=== PATIENT | male | born 1960 | race Caucasian/White ===

== ENCOUNTER 2017-12-05 19:33 | Inpatient (IN) | payer OTHER ==
[2017-12-05] MEDS ORDERED: cefTRIAXone SODIUM 1 GM in 0.9 % SODIUM CHLORIDE 50 ML IV ONE (19:50)
--- NOTE | 2017-12-05 19:54 | ED Physician Documentation ---
General Adult - HISTORIAN Historian: patient, spouse - HPI Stated Complaint: fever, testicular pain Chief Complaint: General Adult Additional Information: Sick 10 days ago with urinary frequency, back pain, fever; no treatment. Ye sterday at noon became sick with malaise, fever to 101, sweats, hallucinations, left testicular swelling. Doesn't know when testicular swelling began - missing much of timeline he says 2/2 fever. Left testicle was not big yesterday. Has been taking tylenol and ibuprofen for fever. Last tylenol at about 1900. Never had these symptoms before. Takes meds for HTN, depression, acid reflux. No other modifying factors or associated signs. - ROS CONST: fever, sweating, recent illness - PAST HX Past History: other (above) Surgeries/Procedures: other (back) Allergies/Adverse Reactions: Allergies Allergy/AdvReac Type Severity Reaction Status Date / Time No Known Allergies Allergy Verified 12/05/17 19:42 Home Medications: Ambulatory Orders Medication Instructions Recorded Escitalopram Oxalate [Lexapro] 10 mg PO D 12/05/17 Losartan Potassium [Cozaar] 50 mg PO D 12/05/17 Omeprazole 10 mg PO D 12/05/17 - SOCIAL HX Smoking History: non-smoker Alcohol Use: none Drug Use: none - FAMILY HX Family History: No - REVIEWED ASSESSMENTS Nursing Assessment Reviewed: Yes Vitals Reviewed: Yes Progress - Progress Progress: Pt clearly has orchitis/epididymitis/UTI. Would like to have US of left testicle. 2042, pt discussed with Dr. Burrows, urology, at [facility], who thinks I should not be4 concerned about US tonight. Recommends admit and IV abx. If pt n ot better in 24 hours, then urology would see him. Discuees pt with Dr. Baez at 2049. 2056, admitted to [facility] ED Results Lab/Radiology - Orders Orders: ED Orders Category Date Time Status Place IV Lock 1T Care 12/05/17 19:43 Ordered BLOOD CULTURE Stat Lab 12/05/17 Ordered CBC/PLATELET/DIFF Routine Lab 12/05/17 Ordered CHLAMYDIA & GONORRHOEAE Stat Lab 12/05/17 Ordered CMP Routine Lab 12/05/17 Ordered URINALYSIS Routine Lab 12/05/17 Ordered NORMAL SALINE @ 1000 MLS/HR ( 1000ml BOLUS) Med 12/05/17 19:50 Ordered 0.9 % Sodium Chloride [Normal Saline] 1,000 ml IV Q1H cefTRIAXone SODIUM [Rocephin] 1 gm Med 12/05/17 19:50 Ordered 0.9 % Sodium Chloride [Sodium Chloride] 50 ml IV NOW General Adult Physical Exam - PHYSICAL EXAM GENERAL APPEARANCE: moderate distress EENT: eye inspection normal, ENT inspection normal, pharynx normal (Mallampati 2), no nystagmus, other (wet oropharynx) NECK: normal inspection, supple. No: lymphadenopathy RESPIRATORY: no resp distress, breath sounds normal CVS: reg rate & rhythm, heart sounds normal, no murmur ABDOMEN: soft, normal bowel sounds, no distension, non-tender, other (Left testicle 3-4x the size of the right with erythema, warmth, ezquisite tenderness. No tense. ) BACK: normal inspection, no CVA tenderness SKIN: diaphoresis, pallor EXTREMITIES: non-tender, normal range of motion, no evidence of injury, no edema NEURO: CN's nml as tested, motor nml, sensation nml, cognition normal Discharge Clincal Impression: Orchitis and epididymitis, unspecified Urinary tract infection Qualifiers: Urinary tract infection type: acute cystitis Hematuria presence: with hematuria Qualified Code(s): N30.01 - Acute cystitis with hematuria Referrals: Primary Doctor,No [Primary Care Provider] - 2 Days Condition: Fair Disposition: ADMITTED INPATIENT Decision to Admit: [id number] Decision Time: 20:57
[2017-12-05] MEDS ORDERED: cefTRIAXone SODIUM 1 GM VIAL ONE (20:00)
[2017-12-05] MEDS ORDERED: 0.9 % SODIUM CHLORIDE 100 ML IV ONE (20:01)
[2017-12-05] MEDS ORDERED: DOXYCYCLINE MONOHYDRATE 100 MG CAPSULE PO ONE (20:15)
[2017-12-05] MEDS: 0.9 % SODIUM CHLORIDE 1,000 ML IV ONE ×2 (20:18→22:31)
[2017-12-05 20:19] LABS: BASOPHILS % 0.2 (0.0-1.5); EOSINOPHILS % 0.3 % (0.0-6.8); MEAN CORPUSCULAR HEMOGLOBIN 31.9 pg (28.0-34.0); MEAN CORPUSCULAR VOLUME 91.4 fl (80.0-100.0); MONOCYTES % 3.4 % (0.0-11.0); NEUTROPHILS # 15.9 # k/uL (1.4-7.7)
[2017-12-05] MEDS ORDERED: HYDROmorphone HCL/PF 2 MG/ML DISP.SYRIN IVP ONE (20:25)
[2017-12-05 20:32] LABS: eGFR (African) > 60; eGFR (Non-African) > 60
[2017-12-05] MEDS ORDERED: ACETAMINOPHEN 500 MG TABLET PO PRN (21:30)
[2017-12-05] MEDS ORDERED: IBUPROFEN 200 MG TABLET PO PRN ×2 (21:30→22:18)
[2017-12-05] MEDS: 0.9 % SODIUM CHLORIDE 1,000 ML IV SCH (23:19)
[2017-12-05 23:50] VITALS: BMI 31.0
[2017-12-06] MEDS ORDERED: traMADol HCL 50 MG TABLET PO PRN (00:12)
[2017-12-06] MEDS ORDERED: ACETAMINOPHEN 500 MG TABLET PO PRN (00:13)
[2017-12-06] MEDS: HYDROmorphone HCL/PF 2 MG/ML DISP.SYRIN IVP PRN ×5 (02:00→23:35)
[2017-12-06] MEDS ORDERED: HYDROmorphone HCL/PF 2 MG/ML DISP.SYRIN ONE (05:59)
[2017-12-06] MEDS: PANTOPRAZOLE SODIUM 40 MG TABLET PO SCH (06:04)
[2017-12-06] MEDS: 0.9 % SODIUM CHLORIDE 1,000 ML IV SCH ×3 (08:15→20:05)
[2017-12-06] MEDS: LOSARTAN POTASSIUM 50 MG TABLET PO SCH (09:17)
[2017-12-06] MEDS: ESCITALOPRAM OXALATE 10 MG TABLET PO SCH (09:17)
[2017-12-06] MEDS: HYDROmorphone HCL/PF 2 MG/ML DISP.SYRIN IVP SCH ×2 (09:46→13:10)
--- NOTE | 2017-12-06 09:54 | History and Physical Report ---
History of Present Illnes - History of Present Illness Reason for Visit: Orchitis History of Present Illness: 57 year old male presented overnight to the ER for left testicular swelling and pain. He notes he had been having some burning with urination and chills for several days prior to coming to the ER. He states he first noticed some testicular discomfort on Wednesday which became significantly worse by Wednesday evening. He notes he has been having fever, chills, blood in his urine, low abdominal pain, and back pain. In the ER his WBC count was 17.7. ER provider reports she spoke with Urology at the [facility] who recommended Doxycycline and Rocephin for treatment. Rocephin IV was given in ER and oral doxycycline was started. Patient reports worsening symptoms this morning, and nursing staff notes fevers through the night. - Past Medical History Cardiac: HTN Pulmonary: denies: Asthma, COPD Gastrointestinal: GERD. denies: Constipation Psych: Anxiety, Depression Musculoskeletal: Chronic low back pain (multiple back surgeries) - Past Surgical History Past Surgical History: Hernia Repair (Umbillical), Other (Fusion of L spine, Skin grafting for velazquez) - Past Social History Smoke: No (quit 10 years ago) Alcohol: Rare Drugs: None Lives: With Family - Health Maintenance Health Maintenance: denies: Influenza Vaccine, Pneumococcal Vaccine Influenza Vaccine: No Pneumonia Vaccine: No Resuscitation Status: Resusciation Status Resuscitation Status Full Code Review of Systems - Review of Systems Constitutional: Fever, Chills Eyes: negative: vision change, redness ENT: negative: Ear Pain, Nose Discharge, Nose Congestion, Throat Pain Respiratory: negative: Cough, Shortness of Breath Cardiovascular: negative: Chest Pain, Light Headedness Gastrointestinal: Abdominal Pain (very low abdomen pain). negative: Nausea, Diarrhea, Constipation Genitourinary: Dysuria, Hematuria, Other (Testicular pain, swelling and erythma of the scrotum) Musculoskeletal: Back Pain (moderate). negative: Foot Pain Skin: negative: Rash Neurological: negative: Weakness, Numbness, Change in Speech, Confusion - Medications/Allergies Allergies/Adverse Reactions: Allergies Allergy/AdvReac Type Severity Reaction Status Date / Time No Known Allergies Allergy Verified 12/05/17 19:42 Home Medications: Home Medications Escitalopram Oxalate [Lexapro] 10 mg PO D 12/05/17 Losartan Potassium [Cozaar] 50 mg PO D 12/05/17 Omeprazole 10 mg PO D 12/05/17 Current Inpatient Medications: Current Inpatient Medications Acetaminophen (Tylenol Extra Strength) 1,000 mg PO Q6H PRN PRN Reason: PAIN OR TEMPERATURE > 101 Escitalopram Oxalate (Lexapro) 10 mg PO D [facility] Last Admin: 12/06/17 09:17 Dose: 10 mg Hydromorphone HCl (Dilaudid) 2 - 4 mg IVP Q2 [facility] Last Admin: 12/06/17 09:46 Dose: 4 mg Sodium Chloride (Normal Saline) 1,000 mls @ 100 mls/hr IV Q10H [facility] Last Admin: 12/05/17 23:19 Dose: 100 mls/hr Ceftriaxone Sodium 1 gm/ (Sodium Chloride) 50 mls @ 100 mls/hr IV NOW ONE Stop: 12/06/17 09:48 LEVOFLOXACIN 500MG/D5W 100ML (500 mg/ PREMIX BAG) 100 mls @ 100 mls/hr IV DAILY [facility] Stop: 12/20/17 09:29 Ibuprofen (Advil) 600 mg PO Q6 PRN PRN Reason: Fever >101 Losartan Potassium (Cozaar) 50 mg PO D [facility] Last Admin: 12/06/17 09:17 Dose: 50 mg Pantoprazole Sodium (Protonix) 40 mg PO 0700 [facility] Last Admin: 12/06/17 06:04 Dose: 40 mg Tramadol HCl (Ultram) 50 mg PO Q6H PRN PRN Reason: PAIN Last Admin: 12/06/17 00:16 Dose: 50 mg Exam - Exam Vital Signs: Vital Signs (72 hours) 12/05/17 12/05/17 12/05/17 19:35 21:42 22:08 Temperature 99.1 F 99.2 F Pulse Rate [ 123 H 76 95 H Pulse ox] Respiratory 22 16 16 Rate Blood Pressure 118/80 117/67 101/59 [Left Arm] O2 Sat by Pulse 95 93 98 Oximetry 12/06/17 12/06/17 02:08 05:53 Temperature 97.7 F 98.8 F Pulse Rate [ 60 71 Pulse ox] Respiratory 20 18 Rate Blood Pressure 140/72 150/78 [Left Arm] O2 Sat by Pulse 98 96 Oximetry General: Alert, Oriented to Person, Oriented to Place, Oriented to Time, Cooperative, Moderate distress (Due to testicular pain especially with any movement. ) HEENT: EOMI, Mouth Mucous membr. moist/[place], Hearing Grossly Normal Neck: Normal Range of Motion Lungs: Clear to auscultation, Normal air movement, Speaks full Sentences Cardiovascular: Regular rate, No murmurs Abdomen: Normal bowel sounds, Soft. No: No tenderness (Tenderness to palpation of the left very low abdomen/groin) Male Genitourinary: Scrotal Edema (Very swollen left testicle that is extremely tender to palpation. Mildly swollen right testicle that is moderately tender to palpation. Erythematous scrotum. ). No: Penile Edema Integumentary: Normal, Warm, Dry Extremities: No clubbing, No cyanosis, No edema, Normal pulses, No tenderness/swelling Neurological: Normal gait, Normal speech, Sensation intact Psych/Mental Status: Mental status NL, Mood NL, Appropriate Affect - Laboratory Results Laboratory Results: Laboratory Results 12/05/17 12/05/17 20:09 20:09 WBC 17.70 H RBC 4.63 Hgb 14.8 Hct 42.3 MCV 91.4 MCH 31.9 MCHC 34.9 RDW 13.1 Plt Count 235 Neut % (Auto) 90.0 H Lymph % (Auto) 5.4 L [place] % (Auto) 3.4 Eos % (Auto) 0.3 Baso % (Auto) 0.2 Neut # (Auto) 15.9 H Lymph # (Auto) 1.0 [place] # (Auto) 0.6 Eos # (Auto) 0.1 Baso # (Auto) 0.0 Reactive Lymphs % 0.7 Reactive Lymphs # 0.1 Sodium 136 Potassium 3.3 L Chloride 101 Carbon Dioxide 26 BUN 13 Creatinine 1.00 Estimated Creat Clear 139 Est GFR ( Amer) > 60 Est GFR (Non-Af Amer) > 60 Glucose 124 H Lactate 1.4 Calcium 8.4 Total Bilirubin 1.1 AST 15 ALT 34 Alkaline Phosphatase 100 Total Protein 7.4 Albumin 3.9 Assessment/Plan - Assessment/Plan (1) Orchitis and epididymitis, unspecified Status: Acute Current Visit: Yes Assessment: Very swollen, very tender, erythematous scrotum and testicles. WBC count elevated on presentation to the ER of 17.7. Plan: Change antibiotic orders to IV rocephin and IV levaquin daily. Monitor for worsening symptoms. Dr. Baez has written for IV pain medication to help with the patients extreme discomfort. VTE Assessment - RISK FACTOR SCORE VTE RISK FACTOR SCORES: AGE 40-60 YEARS, ACUTE INFECTION OTHER THEN SEPSIS - RISK VTE MODERATE RISK: SCORE OF 2 (RISK PROXIMAL DVT 2-4%) PROPHYAXIS NEEDED
[2017-12-06] MEDS ORDERED: LEVOFLOXACIN 500MG/D5W 100ML 100 ML IV ONE (10:09)
[2017-12-06] MEDS: LEVOFLOXACIN 500MG/D5W 100ML 500 MG in PREMIX BAG 1 BAG IV SCH (10:12)
[2017-12-06] MEDS: cefTRIAXone SODIUM 1 GM in 0.9 % SODIUM CHLORIDE 50 ML IV ONE ×2 (12:11→12:16)
[2017-12-06] MEDS: cefTRIAXone SODIUM 1 GM in 0.9 % SODIUM CHLORIDE 100 ML IV SCH (12:15)
[2017-12-06 12:22] LABS: BASOPHILS % 0.2 (0.0-1.5); EOSINOPHILS % 0.2 % (0.0-6.8); MEAN CORPUSCULAR HEMOGLOBIN 31.3 pg (28.0-34.0); MEAN CORPUSCULAR VOLUME 94.8 fl (80.0-100.0); MONOCYTES % 2.9 % (0.0-11.0); NEUTROPHILS # 15.1 # k/uL (1.4-7.7)
[2017-12-06 12:56] LABS: eGFR (African) > 60; eGFR (Non-African) > 60
[2017-12-06] MEDS ORDERED: ONDANSETRON HCL/PF 4 MG/ 2ML VIAL IVP PRN (14:11)
[2017-12-06] MEDS: ENOXAPARIN SODIUM 40 MG/0.4 ML DISP.SYRIN SQ SCH (20:06)
[2017-12-07] MEDS: HYDROmorphone HCL/PF 2 MG/ML DISP.SYRIN IVP PRN ×2 (01:35→05:52)
[2017-12-07] MEDS: PANTOPRAZOLE SODIUM 40 MG TABLET PO SCH (06:00)
[2017-12-07 07:03] LABS: BASOPHILS % 0.2 (0.0-1.5); EOSINOPHILS % 0.2 % (0.0-6.8); MEAN CORPUSCULAR HEMOGLOBIN 31.4 pg (28.0-34.0); MEAN CORPUSCULAR VOLUME 94.1 fl (80.0-100.0); MONOCYTES % 4.3 % (0.0-11.0); NEUTROPHILS # 11.6 # k/uL (1.4-7.7)
[2017-12-07 07:18] LABS: eGFR (African) > 60; eGFR (Non-African) > 60
[2017-12-07] MEDS ORDERED: cefTRIAXone SODIUM 1 GM VIAL ONE (08:38)
[2017-12-07] MEDS: cefTRIAXone SODIUM 1 GM in 0.9 % SODIUM CHLORIDE 100 ML IV SCH (08:50)
[2017-12-07] MEDS: LOSARTAN POTASSIUM 50 MG TABLET PO SCH (09:20)
[2017-12-07] MEDS: ESCITALOPRAM OXALATE 10 MG TABLET PO SCH (09:20)
[2017-12-07] MEDS: ENOXAPARIN SODIUM 40 MG/0.4 ML DISP.SYRIN SQ SCH (09:21)
--- NOTE | 2017-12-07 09:58 | Discharge Summary ---
Discharge Summary - Discharge Sumary History of Present Illness: 57 year old male here for Orchitis. He states he is not feeling any better. He continues to complain of significant discomfort and pain in his testicles. He notes significant swelling, redness, and warmth to his scrotum. He notes he has still been running fevers through the night and is alternating between being chilled and sweating. He has been on IV Rocephin and IV Levaquin the last two days. His is with him today and is requesting transfer to [facility] so that he can be evaluated by a specialist. He denies any new concerns today. Exam: General: Patient appears to be uncomfortable well nourished male. Resp : clear to auscultation Cardio: regular rate and rhythm Abdomen: Very tender to palpation of the very low left sided abdomen/groin. Bowel sounds normal. : very swollen, erythematous, extremely tender scrotum. Worse tenderness is of the left testicle which is considerably larger than the right. Extremities: No swelling or tenderness. Condition at Discharge: Stable Home Medications: Ambulatory Orders Medication Instructions Recorded Escitalopram Oxalate [Lexapro] 10 mg PO D 12/05/17 Losartan Potassium [Cozaar] 50 mg PO D 12/05/17 Omeprazole 10 mg PO D 12/05/17 Consultations this Visit: Other ([facility]rology - Dr. Logan) Procedures this Visit: None Allergies/Adverse Reactions: Allergies Allergy/AdvReac Type Severity Reaction Status Date / Time No Known Allergies Allergy Verified 12/05/17 19:42 Patient Problems: Current Active Problems Problem Status Onset Orchitis and epididymitis, unspecified Acute Urinary tract infection Acute Discharge Summary: Mr. Castro will be transferred to [facility] with accepting physician Dr. Logan (urology) for addtional work up and continued IV antibiotic treatment for orchitis. They will also preform US upon his arrival. Hospital Course: Mr. Castro was admitted to the hospital for orchitis on 12/05/2017. He was started on IV antibiotics and IV pain medication. His WBC count has improved from 17.7-13.4, however he continues to run fevers overnight (101 highest). [facility]. He states he is not feeling any better. US has not yet been done. I have spoken to Dr. Logan (Urology) at the [facility] who has accepted transfer of this patient.
[2017-12-07 10:43] VITALS: BP 137/81
[2017-12-07] MEDS: LEVOFLOXACIN 500MG/D5W 100ML 500 MG in PREMIX BAG 1 BAG IV SCH (13:51)
[2017-12-08 10:21] LABS: APPEARANCE,URINE CLOUDY (CLEAR); COLOR,URINE AMBER (YELLOW); OCCULT BLOOD,URINE 2+ (NEGATIVE)
== END 2017-12-07 11:10 | disposition short-term general hospital (02) | DRG 728 ==
LOC: ED 19:33 → SOUTH 21:34
PROVIDERS: ADMIT Physician Assistant; ATTEND Physician Assistant
DX: N45.2 Orchitis (principal); N39.0 Urinary tract infection, site not specified
CPT/HCPCS: 80053; 81002; 83605; 85025; 87040; 87801; J0696; J1170; J1650; J1956; J7030; 87186; 96365; 96375; 99222; S1016